=== PATIENT | female | born 1980 | race Caucasian/White ===

== ENCOUNTER 2019-02-09 19:26 | Emergency (ER) | payer BC ==
[~2019-02-09] VITALS: Ht 170.1 cm; Wt 72.6 kg
[~2019-02-09 19:26] MED LIST: LEVAQUIN500 M2 PO; PREDNISONE10 MG PO; VENTOLIN H0.09 MG/AC INH
[2019-02-09] MEDS ORDERED: ALBUTEROL2.5 MG/0.5 INH (21:33)
[2019-02-09] MEDS ORDERED: PREDNISONE10 M1 PO (21:33)
== END 2019-02-09 21:37 | disposition home or self-care (01) ==
LOC: ED 19:26
DX: J45.901 Unspecified asthma with (acute) exacerbation (principal); G43.909 Migraine, unspecified, not intractable, without status migrainosus; E05.90 Thyrotoxicosis, unspecified without thyrotoxic crisis or storm

== ENCOUNTER 2019-03-21 17:32 | Emergency (ER) | payer BC ==
[~2019-03-21] VITALS: Ht 170.1 cm; Wt 73.5 kg
[~2019-03-21 17:32] MED LIST changes: +ALBUTEROL2.5 MG/0.5 INH; +PREDNISONE10 M1 PO
[2019-03-21] MEDS ORDERED: PREDNISONE10 MG PO (19:34)
[2019-03-21] MEDS ORDERED: ALBUTEROL2.5 MG/0.5 INH (19:34)
== END 2019-03-21 19:47 | disposition home or self-care (01) ==
LOC: ED 17:32
DX: J45.909 Unspecified asthma, uncomplicated (principal)